=== PATIENT | male | born 1955 | race Caucasian/White ===

== ENCOUNTER 2021-05-09 20:25 | Emergency (ER) | payer BC, MEDICARE ==
[~2021-05-09] VITALS: Ht 190.5 cm; Wt 145.8 kg
[2021-05-09 21:41] LABS: BASO % 0.5 % (0.0-1.0); EOS % 0.2 % (0.0-3.0); HEMOGLOBIN 15.4 g/dl (13.5-17.5); LYMPH # 0.9 10^3/uL (1.5-5.0); LYMPH % 10.5 % (24.0-44.0); MEAN CORPUSCULAR HEMOGLOBIN 31.4 pg (27.0-33.0); MEAN CORPUSCULAR VOLUME 89.8 fl (80.0-96.0); MONO # 0.3 10^3/uL (0.0-0.8); MONO % 2.9 % (2.0-8.0); NEUTROPHILS # 7.4 10^3/uL (1.5-8.5); NEUTROPHILS % 85.6 % (36.0-66.0); PLATELET COUNT, AUTOMATED 191 10^3/uL (150-450); WHITE BLOOD COUNT 8.7 10^3/uL (4.0-10.0)
--- NOTE | 2021-05-09 22:04 | REPVR ---
PROCEDURE INFORMATION: Exam: CT Head Without Contrast Exam date and time: 05/09/2021 9:08 PM Age: 66 years old Clinical indication: Other: Blurred vision TECHNIQUE: Imaging protocol: Computed tomography of the head without contrast. Radiation optimization: All CT scans at this facility use at least one of these dose optimization techniques: automated exposure control; mA and/or kV adjustment per patient size (includes targeted exams where dose is matched to clinical indication); or iterative reconstruction. COMPARISON: No relevant prior studies available. FINDINGS: Brain: There is no evidence of intracranial bleed. Cerebral ventricles: There is a persistent cavum septum pellucidum consistent with normal variation. Paranasal sinuses: Clear paranasal sinuses. Mastoid air cells: Clear mastoid air cells. Orbital cavity: The orbits appear symmetric. Bones/joints: Unremarkable. No acute fracture. Soft tissues: There is no evidence of soft tissue abnormality. IMPRESSION: Normal appearing CT scan of the brain. Electronically signed by: Samuel Recinos On 05/09/2021 22:04:31 PM
[2021-05-09 22:48] LABS: ALT/SGPT 44 U/L (12-78); CK-MB VALUE MASS 1.3 NG/ML (<3.6); CPK CREATINE PHOSPHOKINASE 120 U/L (39-308); MB/CK RELATIVE INDEX 1.08 (< OR =4)
[2021-05-09 22:49] LABS: ALBUMIN 4.3 GM/DL (3.2-5.2); BILIRUBIN,DIRECT 0.2 MG/DL (0.0-0.2); BILIRUBIN,TOTAL 0.7 MG/DL (0.2-1.0); LIPASE 59 U/L (73-393); TOTAL PROTEIN 7.5 GM/DL (6.4-8.2); TROPONIN I < 0.02 NG/ML (< 0.10)
[2021-05-09] MEDS ORDERED: ONDANSETRON 4MG/2ML VIAL IV ONE (23:00)
[2021-05-09] MEDS ORDERED: NS 1,000 ML IV ONE (23:00)
[2021-05-10] MEDS ORDERED: ONDA4TAB6 PO (02:31)
[2021-05-10] MEDS ORDERED: ONDANSETRON 4MG/2ML VIAL IV ONE (02:35)
[2021-05-10 02:45] VITALS: BP 129/57
--- NOTE | 2021-05-10 17:59 | ECGEPIP ---
[facility] - ED Test Date: 2021-05-09 Pat Name: ACE KUMARI Department: Room: - Gender: Male Septic Technician: KIMMY : 1955 Requested By: BRANDON Mcclure Order Number: [id number] Reading MD: Yaquelin Padilla Measurements Intervals [place] Rate: 68 P: 46 [place]: 164 QRS: -20 QRSD: 96 T: -8 QT: 418 QTc: 444 Interpretive Statements Normal sinus rhythm NSTTW abnormalities baseline artifact may affect interpretation No prior Electronically Signed on 05-10-2021 17:58:39 EDT by Yaquelin Padilla
== END 2021-05-10 03:09 | disposition home or self-care (01) ==
LOC: M ED 20:25
DX: R11.10 Vomiting, unspecified (principal); R42 Dizziness and giddiness; G43.909 Migraine, unspecified, not intractable, without status migrainosus
CPT/HCPCS: 70450; 80047; 80076; 82550; 82553; 83690; 84484; 85025; 93005; 96361; 96374; 96375; 99285; J2405

== ENCOUNTER → 2021-07-03 | Outpatient (CLI) | payer MEDICARE ==
[~2021-07-03] MED LIST: ONDA4TAB6 PO
== END ==
LOC: M PLAIMG 13:24
PROVIDERS: ATTEND Family Medicine
DX: E42 Marasmic kwashiorkor (principal)

== ENCOUNTER → 2021-10-11 | Outpatient (REF) | payer MEDICARE ==
[2021-10-11 12:01] LABS: ALBUMIN 4.2 GM/DL (3.2-5.2); ALT/SGPT 37 U/L (12-78); BILIRUBIN,TOTAL 0.6 MG/DL (0.2-1.0); BLOOD UREA NITROGEN 20 MG/DL (7-18); CALCIUM LEVEL 10.1 MG/DL (8.8-10.2); CARBON DIOXIDE LEVEL 30 MEQ/L (21-32); CHLORIDE LEVEL 106 MEQ/L (98-107); CHOLESTEROL LEVEL 182 MG/DL (<200); CHOLESTEROL RISK RATIO 4.333 (<5); CREATININE FOR GFR 1.13 MG/DL (0.70-1.30); GLOMERULAR FILTRATION RATE > 60.0 (>49); GLUCOSE, FASTING 96 MG/DL (70-100); HDL CHOLESTEROL 42 MG/DL (>40); LDL CHOLESTEROL 101 MG/DL (<100); NON-HDL-C 140 MG/DL; POTASSIUM SERUM 4.9 MEQ/L (3.5-5.1); SODIUM LEVEL 141 MEQ/L (136-145); TOTAL PROTEIN 7.5 GM/DL (6.4-8.2); TRIGLYCERIDES LEVEL 196 MG/DL (<150)
== END ==
LOC: M SFHCCLAY 08:26
PROVIDERS: ATTEND Family Medicine
DX: Z00.00 Encounter for general adult medical examination without abnormal findings (principal); Z13.1 Encounter for screening for diabetes mellitus; Z13.220 Encounter for screening for lipoid disorders; Z12.5 Encounter for screening for malignant neoplasm of prostate; E78.00 Pure hypercholesterolemia, unspecified
CPT/HCPCS: 80053; 80061; G0103

== ENCOUNTER → 2022-08-06 | Outpatient (CLI) | payer MEDICARE | LOC: M RAD 07:24 | PROVIDERS: ATTEND Psychiatry & Neurology Neurology | DX: R42 Dizziness and giddiness (principal); R55 Syncope and collapse ==

== ENCOUNTER → 2022-09-27 | Outpatient (REF) | payer MEDICARE ==
[2022-09-27 14:27] LABS: THYROID STIMULATING HORMONE 2.707 uIU/ML (0.55-4.78); THYROXINE (T4) 8.1 UG/DL (4.5-10.9); TOTAL 25(OH) VITAMIN D 31.8 NG/ML (20.0-100.0)
[2022-09-27 16:54] LABS: FREE THYROXINE INDEX 2.8 % (1.4-3.8)
[2022-09-27 17:23] LABS: FOLATE 20.4 NG/ML (>5.4)
== END ==
LOC: M LABDRAWC 11:48
PROVIDERS: ATTEND Psychiatry & Neurology Neurology
DX: E53.8 Deficiency of other specified B group vitamins (principal); E42 Marasmic kwashiorkor; E03.9 Hypothyroidism, unspecified

== ENCOUNTER → 2022-10-29 | Outpatient (REF) | payer MEDICARE ==
[2022-10-29 13:22] LABS: HEMATOCRIT 44.9 % (42.0-52.0); HEMOGLOBIN 15.2 g/dl (13.5-17.5); MEAN CORPUSCULAR HEMOGLOBIN 31.3 pg (27.0-33.0); MEAN CORPUSCULAR HGB CONC 33.9 g/dl (32.0-36.5); MEAN CORPUSCULAR VOLUME 92.6 fl (80.0-96.0); PLATELET COUNT, AUTOMATED 193 10^3/uL (150-450); RED BLOOD COUNT 4.85 10^6/uL (4.30-6.10); WHITE BLOOD COUNT 5.8 10^3/uL (4.0-10.0)
[2022-10-29 13:46] LABS: ALBUMIN 4.2 G/DL (3.2-5.2); ALKALINE PHOSPHATASE 95 U/L (46-116); ALT/SGPT 45 U/L (7.0-40); AST/SGOT 27 U/L (<34); BILIRUBIN,TOTAL 0.4 MG/DL (0.3-1.2); BLOOD UREA NITROGEN 19 MG/DL (9-23); CALCIUM LEVEL 9.4 MG/DL (8.3-10.6); CARBON DIOXIDE LEVEL 30 MMOL/L (20-31); CHLORIDE LEVEL 105 MMOL/L (98-107); CHOLESTEROL LEVEL 155 MG/DL (<200); CHOLESTEROL RISK RATIO 4.01 (<5); GLOMERULAR FILTRATION RATE > 60.0 (>49); GLUCOSE, FASTING 103 MG/DL (74-106); HDL CHOLESTEROL 38.6 MG/DL (>40); NON-HDL-C 116 MG/DL; POTASSIUM SERUM 4.7 MMOL/L (3.5-5.1); SODIUM LEVEL 139 MMOL/L (136-145); TRIGLYCERIDES LEVEL 157 MG/DL (<150)
== END ==
LOC: M SFHCCLAY 08:07
PROVIDERS: ATTEND Family Medicine
DX: Z00.01 Encounter for general adult medical examination with abnormal findings (principal); R42 Dizziness and giddiness; J45.909 Unspecified asthma, uncomplicated; E78.00 Pure hypercholesterolemia, unspecified; Z12.5 Encounter for screening for malignant neoplasm of prostate
CPT/HCPCS: 80053; 80061; 84443; 85027; G0103

== ENCOUNTER → 2023-01-09 | Outpatient (REF) | payer MEDICARE | LOC: M SFHCCLAY 14:30 | PROVIDERS: ATTEND Family Medicine | DX: B34.9 Viral infection, unspecified (principal) ==

== ENCOUNTER → 2023-10-15 | Day surgery (SDC) | payer MEDICARE ==
[~2023-10-15] VITALS: Ht 190.5 cm; Wt 142.7 kg
[~2023-10-15] MED LIST changes: +LIDOCAINE 2% 100MG/5ML SDV (FOR ANES.) As Ordered ONE; +NS 1,000 ML IV ONE; +propofoL 200 MG/20 ML VIAL As Ordered ONE
[2023-10-15 08:02] VITALS: TEMP 98.3
[2023-10-15 08:21] VITALS: BP 144/78; O2SAT 99
== END | disposition home or self-care (01) ==
LOC: M OPP 06:28
PROVIDERS: ATTEND Internal Medicine Gastroenterology
DX: Z12.11 Encounter for screening for malignant neoplasm of colon (principal); K64.0 First degree hemorrhoids; K57.30 Diverticulosis of large intestine without perforation or abscess without bleeding

== ENCOUNTER → 2024-03-23 | Outpatient (REF) | payer MEDICARE ==
[~2024-03-23] MED LIST changes: -LIDOCAINE 2% 100MG/5ML SDV (FOR ANES.) As Ordered ONE; -NS 1,000 ML IV ONE; -propofoL 200 MG/20 ML VIAL As Ordered ONE
[2024-03-23 12:13] LABS: HEMATOCRIT 45.1 % (42.0-52.0); HEMOGLOBIN 15.7 g/dl (13.5-17.5); MEAN CORPUSCULAR HEMOGLOBIN 31.3 pg (27.0-33.0); MEAN CORPUSCULAR HGB CONC 34.8 g/dl (32.0-36.5); PLATELET COUNT, AUTOMATED 199 10^3/uL (150-450); RED BLOOD COUNT 5.01 10^6/uL (4.30-6.10); WHITE BLOOD COUNT 6.2 10^3/uL (4.0-10.0)
[2024-03-23 12:39] LABS: PSA SCREENING 0.73 NG/ML (< 4.00)
[2024-03-23 12:43] LABS: ALBUMIN 4.1 G/DL (3.2-5.2); ALKALINE PHOSPHATASE 86 U/L (46-116); ALT/SGPT 32 U/L (7.0-40); AST/SGOT 14 U/L (<34); BILIRUBIN,TOTAL 0.7 MG/DL (0.3-1.2); BLOOD UREA NITROGEN 19 MG/DL (9-23); CALCIUM LEVEL 9.8 MG/DL (8.3-10.6); CARBON DIOXIDE LEVEL 26 MMOL/L (20-31); CHLORIDE LEVEL 107 MMOL/L (98-107); CHOLESTEROL LEVEL 160 MG/DL (<200); CHOLESTEROL RISK RATIO 3.82 (<5); CREATININE FOR GFR 1.01 MG/DL (0.70-1.30); GLOMERULAR FILTRATION RATE > 60.0 (>42); GLUCOSE, FASTING 102 MG/DL (74-106); HDL CHOLESTEROL 41.8 MG/DL (>40); LDL CHOLESTEROL 88.8 MG/DL (<100); NON-HDL-C 118.2 MG/DL; POTASSIUM SERUM 4.6 MMOL/L (3.5-5.1); SODIUM LEVEL 140 MMOL/L (136-145); TOTAL PROTEIN 7.1 G/DL (5.7-8.2); TRIGLYCERIDES LEVEL 147 MG/DL (<150)
== END ==
LOC: M SFHCCLAY 07:47
PROVIDERS: ATTEND Family Medicine
DX: Z00.01 Encounter for general adult medical examination with abnormal findings (principal); R42 Dizziness and giddiness; J45.909 Unspecified asthma, uncomplicated; E78.00 Pure hypercholesterolemia, unspecified; Z12.5 Encounter for screening for malignant neoplasm of prostate
CPT/HCPCS: 80053; 80061; 85027; G0103

== ENCOUNTER → 2025-09-28 | Outpatient (CLI) | payer MEDICARE ==
[~2025-09-28] MED LIST changes: +ONDA-282 PO; -ONDA4TAB6 PO
== END ==
LOC: M CLY 14:00
PROVIDERS: ATTEND Physician Assistant
DX: J40 Bronchitis, not specified as acute or chronic (principal)

== ENCOUNTER → 2025-10-24 | Outpatient (CLI) | payer MEDICARE | LOC: M PLAIMG 08:48 | PROVIDERS: ATTEND Otolaryngology | DX: J32.8 Other chronic sinusitis (principal); J34.2 Deviated nasal septum ==